=== PATIENT | male | born 1945 | race Caucasian/White ===

== ENCOUNTER 2020-04-18 13:40 | Observation (INO) | payer MEDICARE, OTHER ==
[~2020-04-18] VITALS: Ht 172.7 cm; Wt 86.0 kg
--- NOTE | ~2020-04-18 | EMS ---
[address] [address] EMS Patient Care Report Name: EVELYN IBRAHIM Room: [facility]..#: [id number] Admission: Attend Phys: Discharge: Date of : 43 Report #: [id number] THIS REPORT FOR: //name// Report Transmitted: 04/18/2020 13:32 EMS Care Summary [facility] [place] Incident [id number] @ 04/18/2020 12:58 Incident Location [address] [place], [place] [id number] Patient EVELYN IBRAHIM Male, 74 Years 1945 Patient Address [address] [id number] Patient History Old myocardial infarction,Presence of coronary angioplasty implant and graft,Chronic Kidney Disease,Acute kidney failure, unspecified, Patient Allergies , Patient Medications Acetaminophen, clopidogrel, Colestipol, Docusate, Finasteride, Flomax, Fludrocortisone, gabapentin, Guaifenesin, Humalog, Hydroxychloroquine, Levemir, Loperamide, Meclizine, Melatonin, Midodrine, Simvastatin, Tobramycin, Chief Complaint Change in responsiveness Disposition Transported No Lights/Mooers Dispatch Reason Chest Pain (Non-Traumatic) Transported To [facility] Narrative Dispatched to address noted for chest pain. [facility] en route and on scene at [address] [address] EMS Patient Care Report Name: EVELYN IBRAHIM Room: [facility]#: [id number] Admission: Attend Phys: Discharge: Date of : 43 Report #: [id number] time noted. Arrived and found patient sitting in dialysis chair. Patient was unhooked from the machine and they stated that 45 minutes into his treatment he began to complain of a sudden onset of chest pain on his left side. Patient stated it felt like a pounding sensation. THey stopped the treatment and did not given him any Nitro due to his low blood pressure at the time (86/55). Patient was in public so I had the staff move him to the stretcher with a betty lift and he was then buckled up and take to the ambulance. RN on scene stated that he was given a dose of midodrine for his hypotension before treatment. Once in ambulance, vitals where taken as noted. 12 lead appeared normal with no elevation noted. Pain in chest was non reproducible to palpation. ASA given and IV site could not be located. [facility] was chosen after discovering that [facility] was on high volume. While en route, vitals where taken again as noted with no major change to pain, vitals or condition. Radio report was given at time noted. Arrived and took patient to room 4. Patient was moved to bed and RN was given verbal report. RN signed for patient and patient signed for self. END REPORT EMT-P Angel Riddle Initial Vitals @13:04Pain: 02/10, @13:16Pain: 02/10, @13:12SpO2: 97, @13:13SpO2: 98, @13:18SpO2: 99, @13:23SpO2: 99, @13:28SpO2: 99, @13:10 @13:15 @13:27 @13:12P: 88,R: 16,BP: 111/80, @13:33P: 81,R: 18,BP: 99/46, @13:12GCS: 15, @13:33GCS: 15, @13:04 Assessments @13:04MENTAL:SKIN:HEENT:LUNG SOUNDS:ABDOMEN:PELVIS//GI:EXTREMITIES:PULSE:NEURO: Impression Other chest pain Procedures @13:14Aspirin - 324.000 Milligrams (mg) - OralResponse: Unchanged@13:04Other - Medication - 2.000 Liters per Minute (l/min [fluid]) - Nasal CannulaResponse: Unchanged@13:1012-Lead ECGResponse: UnchangedSucceeded@13:153-Lead ECGResponse: UnchangedSucceeded@13:2712-Lead ECGResponse: [place] [address] EMS Patient Care Report Name: EVELYN IBRAHIM Room: [facility]#: [id number] Admission: Attend Phys: Discharge: Date of : 43 Report #: [id number] Timeline 12:58,Call Received 12:58,Dispatch Notified 12:58,Psap Call 12:58,Dispatched 12:58,En Route 13:02,On Scene 13:04,At Patient 13:04,Other - Medication - 2.000 Liters per Minute (l/min [fluid]) - Nasal Cannula,Response: Unchanged 13:04,BP: / M,PULSE: ,RR: R,SPO2: Ox,ETCO2: ,BG: ,PAIN: 8,GCS: , 13:04,BP: / M,PULSE: ,RR: R,SPO2: Ox,ETCO2: ,BG: ,PAIN: ,GCS: , 13:10,12-Lead ECG,Response: UnchangedSucceeded, 13:10,BP: / M,PULSE: ,RR: R,SPO2: Ox,ETCO2: ,BG: ,PAIN: ,GCS: , 13:12,BP: / M,PULSE: ,RR: R,SPO2: 97 Ox,ETCO2: ,BG: ,PAIN: ,GCS: , 13:12,BP: 111/80 M,PULSE: 88,RR: 16 R,SPO2: Ox,ETCO2: ,BG: ,PAIN: ,GCS: , 13:12,BP: / M,PULSE: ,RR: R,SPO2: Ox,ETCO2: ,BG: ,PAIN: ,GCS: 15, 13:13,BP: / M,PULSE: ,RR: R,SPO2: 98 Ox,ETCO2: ,BG: ,PAIN: ,GCS: , 13:14,Aspirin - 324.000 Milligrams (mg) - Oral,Response: Unchanged 13:15,3-Lead ECG,Response: UnchangedSucceeded, 13:15,BP: / M,PULSE: ,RR: R,SPO2: Ox,ETCO2: ,BG: ,PAIN: ,GCS: , 13:16,Depart Scene 13:16,BP: / M,PULSE: ,RR: R,SPO2: Ox,ETCO2: ,BG: ,PAIN: 8,GCS: , 13:18,BP: / M,PULSE: ,RR: R,SPO2: 99 Ox,ETCO2: ,BG: ,PAIN: ,GCS: , 13:23,BP: / M,PULSE: ,RR: R,SPO2: 99 Ox,ETCO2: ,BG: ,PAIN: ,GCS: , 13:27,12-Lead ECG,Response: UnchangedSucceeded, 13:27,BP: / M,PULSE: ,RR: R,SPO2: Ox,ETCO2: ,BG: ,PAIN: ,GCS: , 13:28,BP: / M,PULSE: ,RR: R,SPO2: 99 Ox,ETCO2: ,BG: ,PAIN: ,GCS: , 13:33,BP: 99/46 M,PULSE: 81,RR: 18 R,SPO2: Ox,ETCO2: ,BG: ,PAIN: ,GCS: , 13:33,BP: / M,PULSE: ,RR: R,SPO2: Ox,ETCO2: ,BG: ,PAIN: ,GCS: 15, 13:37,At Destination 13:47,Call Closed Disclaimer v1.1 Copyright 2020 [employer] This EMS Care Summary contains data elements from the applicable legal record (which may be displayed differently). It is designed to provide pertinent information for the following purposes: continuity of care, clinical quality, and state data reporting. The complete legal record is available to ED staff and administrators of the receiving hospital in [employer] Patient Tracker. All data is provided "as is."
[2020-04-18 13:44] VITALS: BP 105/42
[2020-04-18] MEDS ORDERED: TYLENOL325 MG PO (13:48)
[2020-04-18] MEDS ORDERED: PLAVIX 75 MG TA75 MG PO (13:48)
[2020-04-18] MEDS ORDERED: FLORANEX TABLE1 EACH PO (13:48)
[2020-04-18] MEDS ORDERED: COLESTIPOL HCL1 G1 PO (13:48)
[2020-04-18] MEDS ORDERED: DIALYVITE TABL1 EACH PO (13:49)
[2020-04-18] MEDS ORDERED: COLACE100 MG PO (13:49)
[2020-04-18] MEDS ORDERED: FLORINEF ACETA0.1 MG PO (13:50)
[2020-04-18] MEDS ORDERED: MUCINEX600 MG PO (13:50)
[2020-04-18] MEDS ORDERED: PROSCAR 5MG TABL5 MG PO (13:50)
[2020-04-18] MEDS ORDERED: FLOMAX0.4 MG PO (13:50)
[2020-04-18] MEDS ORDERED: GABAPENTIN100 MG PO (13:50)
[2020-04-18] MEDS ORDERED: HYDROXYCHLOROQ200 M1 PO (13:51)
[2020-04-18] MEDS ORDERED: HUMALOG100 UNIT/1 SUBQ (13:51)
[2020-04-18] MEDS ORDERED: LOPERAMIDE 2 MG2 M1 PO (13:52)
[2020-04-18] MEDS ORDERED: LEVEMIR100 UNIT/2 SUBQ (13:52)
[2020-04-18] MEDS ORDERED: MELATONIN3 M1 PO (13:53)
[2020-04-18] MEDS ORDERED: PROAIR HFA8.5 GM INH (13:53)
[2020-04-18] MEDS ORDERED: MIDODRINE HCL 55 M1 PO (13:53)
[2020-04-18] MEDS ORDERED: MECLIZINE HCL25 M1 PO (13:53)
[2020-04-18] MEDS ORDERED: RENVELA0.8 GM PO (13:54)
[2020-04-18] MEDS ORDERED: ZOLOFT25 MG PO (13:54)
[2020-04-18] MEDS ORDERED: ZOFRAN4 MG PO (13:55)
[2020-04-18] MEDS ORDERED: SIMVASTATIN80 MG PO (13:55)
[2020-04-18] MEDS ORDERED: TOBRAMYCIN SULFA5 M1 EA. EYE (13:55)
[2020-04-18 14:17] LABS: CALCIUM 8.3 mg/dL (8.5-10.1); CREATININE 3.7 mg/dL (0.6-1.3); POTASSIUM 4.4 mmol/L (3.5-5.1)
[2020-04-18 14:19] LABS: APTT 29.9 Seconds (25.0-31.3); INR 1.1; PROTIME 11.8 Seconds (9.20-11.50)
[2020-04-18 14:22] LABS: ABSOLUTE LYMPHOCYTES 0.8 thou/uL (0.8-5.3); ABSOLUTE NEUTROPHILS 9.8 thou/uL (1.6-8.1); BASOPHILS 0.4 %; HEMATOCRIT 28.7 % (42.0-52.0); HEMOGLOBIN 8.7 gm/dL (14.0-18.0); LYMPHOCYTES 6.9 %; MCH 27.7 pg (26.0-34.0); MCHC 30.5 g/dL (28.0-37.0); MCV 90.9 fL (80.0-100.0); MONOCYTES 8.9 %; MPV 7.2 fl. (7.2-11.1); NUCLEATED RBCS 0 /100WBC; PLATELET COUNT* 324 thou/uL (150-400); POLYS 83.8 %; RBC 3.15 mil/uL (4.50-6.00); RDW-CV 18.3 % (10.5-14.5); WBC 11.7 thou/uL (4.0-11.0)
[2020-04-18 14:28] LABS: ALBUMIN 2.2 g/dL (3.4-5.0); MAGNESIUM 2.6 mg/dL (1.8-2.4); TOTAL BILIRUBIN 0.5 mg/dL (<0.1-1.0); TOTAL PROTEIN 6.2 g/dL (6.4-8.2)
--- NOTE | 2020-04-18 16:23 | EKG ---
[place] [address] ELECTROCARDIOGRAM REPORT Name: EVELYN IBRAHIM Room: [facility]#: [id number] Admission: 04/18/20 Attend Phys: Discharge: Date of : 43 Date of Service: 04/18/20 1343 Report #: [id number] THIS REPORT FOR: //name// [facility] ED Test Date: 2020-04-18 Test Time: 13:43:49 Pat Name: EVELYN IBRAHIM Department: Room: Gender: Professional Security Officer: [facility] : 1945 Requested By: Jose Cobb Order Number: [id number] MD: Timothy Art Measurements Intervals [place] Rate: 80 P: [place]: QRS: 21 QRSD: 88 T: -59 QT: 589 QTc: 680 Interpretive Statements Accelerated junctional rhythm nonspecific t wave changes noted Low voltage, extremity and precordial leads RSR' in V1 or V2, right VCD or RVH Prolonged QT interval Baseline wander in lead(s) V1 No previous ECG available for comparison Electronically Signed On 04-18-2020 16:23:20 CDT by Timothy Art [email or web address] <ELECTRONICALLY SIGNED> By: Timothy Art MD, FAC 04/18/20 1623 1343 1343 Timothy Art MD, [facility] /EPI
[2020-04-18 21:40] VITALS: BP 95/43
[2020-04-18 21:50] VITALS: BP 105/70
[2020-04-19] VITALS: BP 88/41
[2020-04-19 04:00] VITALS: BP 99/49
[2020-04-19 04:51] LABS: ABSOLUTE LYMPHOCYTES 1.5 thou/uL (0.8-5.3); ABSOLUTE MONOCYTES 1.1 thou/uL (0.0-1.2); ABSOLUTE NEUTROPHILS 6.8 thou/uL (1.6-8.1); BASOPHILS 0.4 %; EOSINOPHILS 0.1 %; HEMATOCRIT 26.9 % (42.0-52.0); HEMOGLOBIN 8.3 gm/dL (14.0-18.0); LYMPHOCYTES 16.2 %; MCH 27.9 pg (26.0-34.0); MCHC 30.7 g/dL (28.0-37.0); MONOCYTES 11.7 %; MPV 7.2 fl. (7.2-11.1); NUCLEATED RBCS 0 /100WBC; PLATELET COUNT* 319 thou/uL (150-400); POLYS 71.6 %; RBC 2.96 mil/uL (4.50-6.00); RDW-CV 18.6 % (10.5-14.5); WBC 9.5 thou/uL (4.0-11.0)
[2020-04-19 05:33] LABS: CALCIUM 8.1 mg/dL (8.5-10.1); POTASSIUM 4.8 mmol/L (3.5-5.1)
[2020-04-19 05:43] LABS: CREATININE 4.7 mg/dL (0.6-1.3)
[2020-04-19] MEDS ORDERED: REMERON 30 MG T30 M1 PO (07:10)
[2020-04-19 12:00] VITALS: BP 97/48
--- NOTE | 2020-04-20 09:47 | CON ---
[address] [address] CONSULTATION Name: EVELYN IBRAHIM Room: [address] Melanie Bergeron#: [id number] Admission: 04/18/20 Attend Phys: Eric Page MD Discharge: 04/19/20 Date of : 43 Report #: [id number] THIS REPORT FOR: //name// cc: Livan Isaac MD, Erick J. MD ~ THIS REPORT FOR: //name// DATE OF SERVICE: 04/19/2020 HISTORY OF PRESENT ILLNESS: The patient is a 74-year-old white male who I was asked to see in the hospital today after he complained of chest pain. The patient has an extensive and complicated past medical history. Unfortunately, he has never been here to [place] before. He notes in 2007, he had a heart attack and had a stent placed at [facility]. He apparently had a stress test 3 years ago at [place]. He has a long history of diabetes and 2 years ago he developed end-stage renal disease. He now has a fistula in his left arm and undergoes hemodialysis on Tuesday, Tuesday and Tuesday. He has a history of low blood pressure. He apparently was admitted 4 weeks ago at [facility] in [facility] when he fell and fractured his back. He required injections in his back. He is now undergoing rehabilitation in a half-way. Yesterday, he was at Dialysis when he felt a discomfort in his chest. It did not radiate to his arms or jaw. He had no associated shortness of breath, nausea or diaphoresis. He denies any recent fever or cough. He noticed his heart was fluttering. He was brought here to [place] by ambulance. The chest pain and fluttering resolved. Cardiology consultation was requested. PAST MEDICAL HISTORY: He has had shoulder surgery, diabetes, COPD. 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 CURRENT MEDICATIONS: Consist of: 1. Plavix. 2. Colestipol. 3. Proscar. 4. Flomax. 5. Neurontin. 6. Insulin. 7. Plaquenil. 8. Imodium. 9. Meclizine. 10. Midodrine. 11. Albuterol nebulizer. 12. Zoloft. 13. Simvastatin. ALLERGIES: He is intolerant to METHOTREXATE, TRAMADOL, [place] [address] CONSULTATION Name: EVELYN IBRAHIM Room: [address]#: [id number] Admission: 04/18/20 Attend Phys: Eric Page MD Discharge: 04/19/20 Date of : 43 Report #: [id number] FAMILY HISTORY: His mother had heart disease. SOCIAL HISTORY: He is , although his is in a half-way. He quit smoking years ago. No alcohol abuse. REVIEW OF SYSTEMS: No history of liver disease. He has had a skin cancer removed in the past. He has restless leg syndrome. No chronic skin condition. PHYSICAL EXAMINATION: GENERAL: Revealed an elderly, frail-appearing male, lying in bed. He appeared in no acute distress. VITAL SIGNS: He has a blood pressure of 100/60, pulse is 80. He is afebrile. HEENT: He is anicteric. Conjunctivae are pink. Mucous membranes appear dry. NECK: Neck veins do not appear distended. No carotid bruits. CHEST: Clear to auscultation. CARDIAC: Regular rate without rub or murmur. ABDOMEN: Soft. EXTREMITIES: Had no edema. Dorsalis pedis pulse could not be palpated. SKIN: Cool and dry. NEUROLOGIC: Nonfocal. He had an ECG in the Emergency Room. There was evidence of sinus rhythm, incomplete right bundle branch block. Nonspecific T-wave changes were noted. He had a chest x-ray in the Emergency Room last night that showed an infiltrate in the left base, small effusion and cardiomegaly. LABORATORY DATA: Sodium 139, creatinine 4.7. Liver function studies were normal. Troponins were all 0.06. White blood cell count 9.5, hemoglobin 8.3, hematocrit 26.9. IMPRESSION AND RECOMMENDATIONS: 1. Coronary artery disease. The patient is on Plavix. Symptoms are atypical for angina. We recommend no further cardiac evaluation at this time. 2. History of complaints of palpitations. No arrhythmia noted. 3. History of hypertension. The patient is on midodrine. 4. End-stage renal disease. The patient is on dialysis. 5. Anemia. No history of bleeding. 6. Previous tobacco abuse. The patient is on oxygen. 7. Chronic back pain. The patient recently has received injections. He is currently in rehabilitation. [address] [address] CONSULTATION Name: EVELYN IBRAHIM Room: [address] Melanie Bergeron#: [id number] Admission: 04/18/20 Attend Phys: Eric Page MD Discharge: 04/19/20 Date of : 43 Report #: [id number] Recommend no further cardiac evaluation at this time. <ELECTRONICALLY SIGNED> By: Timothy Art MD, FACC 04/20/20 0947 0855 [id number] Art MD, FACC /nt
== END 2020-04-19 12:50 ==
LOC: M.ERS 13:40 → M.TBA-ER 16:31 → M.2W 21:53
PROVIDERS: Emergency Medicine Emergency Medical Services; ADMIT Internal Medicine; ATTEND Internal Medicine
DX: R07.89 Other chest pain (principal); E11.22 Type 2 diabetes mellitus with diabetic chronic kidney disease; N18.6 End stage renal disease; M19.90 Unspecified osteoarthritis, unspecified site; J44.9 Chronic obstructive pulmonary disease, unspecified; I25.10 Atherosclerotic heart disease of native coronary artery without angina pectoris; D64.9 Anemia, unspecified; Z79.01 Long term (current) use of anticoagulants; Z79.4 Long term (current) use of insulin; Z79.899 Other long term (current) drug therapy; Z20.828 Contact with and (suspected) exposure to other viral communicable diseases; Z99.2 Dependence on renal dialysis; Z87.891 Personal history of nicotine dependence